=== PATIENT | female | born 1995 | race Caucasian/White ===

== ENCOUNTER 2021-02-06 18:53 | Inpatient (IN) | payer BC ==
[2021-02-06] MEDS ORDERED: Acetaminophen 325 MG Tab PO PRN (20:24)
[2021-02-06] MEDS ORDERED: Sodium Chloride 0.9% 10 ML Syringe FLUSH PRN (20:24)
[2021-02-06] MEDS ORDERED: Calcium Carbonate 500 MG Tab.Chew PO PRN (20:24)
[2021-02-06] MEDS ORDERED: Nalbuphine 10 MG/1 ML Vial IVPUSH PRN (20:24)
[2021-02-06] MEDS ORDERED: Ondansetron 4 MG/2 ML SDV IVPUSH PRN (20:24)
[2021-02-06] MEDS ORDERED: Lidocaine 1% 50 ML MDV INJECT ONE (20:24)
[2021-02-06] MEDS ORDERED: Oxytocin/Lactated Ringers 10 UNIT/1,000 ML BAG IV SCH ×2 (20:30)
--- NOTE | 2021-02-06 20:42 | PCM.LDHP ---
L&D History of Present Illness - General Date of Service: 02/06/21 Admit Problem/Dx: Patient Status Order with Admit Dx/Problem 02/06/21 20:24 Patient Status [ADT] Routine Admission Diagnosis/Problem Admission Diagnosis/Problem Term 02/06/21 20:35 Marcia is a 25-year-old 1 para [address] Tobar presently at 40-6/7 weeks gestational age with an CATHERINE of 01/31/2021 was admitted for induction of labor secondary to postdates. Source of Information: Patient History Limitations: Reports: No Limitations - History of Present Illness Introduction:: Marcia is a 25-year-old 1 para [address] Tobar presently at 40-6/7 weeks gestational age with an CATHERINE of 01/31/2021 was admitted for induction of labor secondary to postdates. The process of induction of labor, its risks, benefits, alternatives of care including allowing for natural onset of labor discussed in detail with patient. She appears understand and wishes to proceed. Upon admission patient is noted to be gary mildly. She does feel contractions. Her cervix exam done by nursing staff upon a dmission to labor and delivery is essentially unchanged from her evaluation in clinic where she is 1.5 cm, 40% effaced, -3 station. 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 Ultrasound done on 07/03/2020 given CATHERINE of 01/31/2021 which is her working CATHERINE. Patient seen on a regular basis. Weight gain was from 161 to 171 pounds. Her vital signs remained stable throughout the course. Baby's been active. Patient had menarche at normal age per her history. Cycles regular. No control at the time of conception. No STIs or abnormal Pap smears noted in the past. Laboratory testing in shows blood to be a positive with a negative antibody screen. First hemoglobin was 15.1 g/dL and platelets were 271,000. She is rubella negative. Syphilis IgG and IgM is nonreactive. Hepatitis B surface antigen was nonreactive. HIV negative. Chlamydia and gonorrhea tests were both negative. Second trimester showed hemoglobin of 11.9 g/dL. Platelets 189,000. 1 hour GTT was 135. Group B strep screen was negative. Allergies: None Medications: 1. vitamins 1 daily 2. Fluoxetine 1 tablet - 20 mg daily. 3 Zofran as needed for nausea Past medical history: Unremarkable Past surgical history: 1. Frenulectomy 2. Bladder surgery as a child to relieve the valve which was causing reflux 3. [place] teeth extraction Family history: Mother and father are alive and well. Maternal grandparents are alive and in generally good health. Her maternal grandfather has had a stroke. Her grandparents on her father's side are at old age. No anesthesia, bleeding, blood clotting problems noted in the family. Social history: Patient is . is Dave. 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 Dave her works as a teacher. She does not use any significance alcohol, drugs or tobacco. They live in the [facility]. Review of systems: In general patient has no complaints. The patient does reports having some contractions at this point Skin: Negative Lungs: No infectious symptoms or shortness of breath Cardiovascular: No chest pain or exercise intolerance Breasts: No lumps, changes in size, pain, dimpling, discharge or axillary or supraclavicular concerns. GI: Negative : Body habitus changes associated Musculoskeletal: Negative Neurological: Negative Physical exam: In general the patient is well-developed, well-nourished, pleasant female of stated age in no acute distress. Skin is warm dry without lesions. HEENT, neck and back within normal limits. Lungs are clear with good breath sounds in all lung montero. Cardiovascular exam shows regular and rhythm without murmurs. Abdomen is gravid with fundal height consistent with dates. Baby in vertex presentation by Nikos. Genital exam per nursing staff it is as outlined in the HPI. Extremities and neurological exam are grossly within normal limits. - Related Data Allergies/Adverse Reactions: Allergies Allergy/AdvReac Type Severity Reaction Status Date / Time No Known Allergies Allergy Verified 02/06/21 20:30 Home Medications: Home Meds Famotidine [Pepcid] 10 mg PO DAILY PRN 02/06/21 [History] No122/Iron/Folic Acid [ Multi Tablet] 1 each PO DAILY 02/06/21 [History] H&P Review of Systems - Review of Systems: Review Of Systems: See Below L&D Exam - Exam Exam: See Below - Vital Signs Weight: 76.929 kg - Problem List (1) 40 weeks gestation of SNOMED Code(s): 81003259 ICD Code: Z3A.40 - 40 WEEKS GESTATION OF Status: Acute Current Visit: Yes Problem List Initiated/Reviewed/Updated: Yes Orders Last 24hrs: Active Orders 24 hr Category Date Time Status Patient Status [ADT] Routine ADT 02/06/21 20:24 Active Activity as Tolerated [RC] PFP Care 02/06/21 20:24 Active Antiembolic Devices [RC] .Routine Care 02/06/21 20:26 Active Communication Order [RC] ASDIRECTED Care 02/06/21 20:24 Active Communication Order [RC] ASDIRECTED Care 02/06/21 20:24 Active Communication Order [RC] ASDIRECTED Care 02/06/21 20:24 Active Communication Order [RC] ASDIRECTED Care 02/06/21 20:24 Active Heart Tones [RC] ASDIRECTED Care 02/06/21 20:25 Active Monitoring [RC] INTERMITTENT Care 02/06/21 20:24 Active Non Stress Test [RC] PER UNIT ROUTINE Care 02/06/21 20:24 Active Notify Provider [RC] ASDIRECTED Care 02/06/21 20:24 Active Notify Provider [RC] PFP Care 02/06/21 20:24 Active Notify Provider [RC] PRN Care 02/06/21 20:24 Active Peripheral IV Care [RC] . DIRECTED Care 02/06/21 20:25 Active Pump Management, Intrathecal [RC] ASDIRECTED Care 02/06/21 20:25 Active Urinary Catheter Assessment [RC] ASDIRECTED Care 02/06/21 20:24 Active VTE/DVT Education [RC] PER UNIT ROUTINE Care 02/06/21 20:26 Active Vaginal Exam [RC] ASDIRECTED Care 02/06/21 20:24 Active Vital Signs [RC] PER UNIT ROUTINE Care 02/06/21 20:24 Active Regular Diet [DIET] Diet 02/06/21 Dinner Active BLOOD BANK HOLD SPECIMEN [BBK] Stat Lab 02/06/21 20:24 Ordered CBC WITH AUTO DIFF [HEME] Stat Lab 02/06/21 20:24 Ordered CORONAVIRUS COVID-19 ELENI [MOLEC] Stat Lab 02/06/21 20:27 Ordered HEP C VIRUS AB [REF] Stat Lab 02/06/21 20:24 Ordered RAPID PLASMA REAGIN,RPR [CHEM] Stat Lab 02/06/21 20:24 Ordered Acetaminophen [TylenoL] Med 02/06/21 20:24 Active 650 mg PO Q4H PRN Calcium Carbonate [Tums] Med 02/06/21 20:24 Active 1,000 mg PO Q2H PRN Lactated Ringers [Ringers, Lactated] 1,000 ml Med 02/06/21 20:30 Active IV ASDIRECTED Nalbuphine [Nubain] Med 02/06/21 20:24 Active 10 mg IVPUSH Q2H PRN Ondansetron [Zofran] Med 02/06/21 20:24 Active 4 mg IVPUSH Q4H PRN Oxytocin/Lactated Ringers [Pitocin in LR 10 Units/1,000 Med 02/06/21 20:30 Active ML] 10 unit in 1,000 ml IV .CONTINUOUS Oxytocin/Lactated Ringers [Pitocin in LR 10 Units/1,000 Med 02/06/21 20:30 Active ML] 10 unit in 1,000 ml IV TITRATE Sodium Chloride 0.9% [Saline Flush] Med 02/06/21 20:24 Active 10 ml FLUSH ASDIRECTED PRN DVT/VTE Prophylaxis Reflex [OM.PC] Routine Oth 02/06/21 20:25 Ordered Electronic Heart Tones Ext w TOCO [WOMSER] Oth 02/06/21 20:24 Ordered Routine Electronic Heart Tones Internal [WOMSER] Per Unit Oth 02/06/21 20:24 Ordered Routine Peripheral IV Insertion Adult [OM.PC] Routine Oth 02/06/21 20:24 Ordered Resuscitation Status Routine Resus Stat 02/06/21 20:24 Ordered Medication Orders Acetaminophen (Acetaminophen 325 Mg Tab) 650 mg PO Q4H PRN PRN Reason: Pain (Mild 1-3) and fever Calcium Carbonate/Glycine (Calcium Carbonate 500 Mg Tab.Chew) 1,000 mg PO Q2H PRN PRN Reason: Indigestion Lactated Ringer's (Ringers, Lactated) 1,000 mls @ 40 mls/hr IV ASDIRECTED REGGIE Oxytocin/Lactated Ringer's (Pitocin In Lr 10 Units/1,000 Ml) 10 unit in 1,000 mls @ 12 mls/hr IV TITRATE REGGIE; Protocol Oxytocin/Lactated Ringer's (Pitocin In Lr 10 Units/1,000 Ml) 10 unit in 1,000 mls @ 500 mls/hr IV .CONTINUOUS REGGIE Nalbuphine HCl (Nalbuphine 10 Mg/1 Ml Vial) 10 mg IVPUSH Q2H PRN PRN Reason: Pain Ondansetron HCl (Ondansetron 4 Mg/2 Ml Sdv) 4 mg IVPUSH Q4H PRN PRN Reason: Nausea/Vomiting Sodium Chloride (Sodium Chloride 0.9% 10 Ml Syringe) 10 ml FLUSH ASDIRECTED PRN PRN Reason: Keep Vein Open Assessment/Plan Comment:: 1. Marcia is a 25-year-old 1 para [address] Cao's presently at 40-6/7 weeks gestational age with an CATHERINE of 01/31/2021 was admitted for induction of labor secondary to postdates. 2. Group B strep negative 3. Rh+ 4. Patient plans to breast-feed 5. Rubella negative. 6. Patient wishes to initiate labor with natural pain control but is okay with epidural later if necessary Plan: 1. Pitocin induction/augmentation of labor-anticipate 2. Support breast-feeding decision 3. Epidural as needed 4. Admission labs to consist of CBC, COVID-19 testing, RPR per IN PROCESSING INSTRUCTOR protocol
[2021-02-06] MEDS: Lactated Ringers 1,000 ML IV SCH (21:26)
[2021-02-07] MEDS ORDERED: Bupivacaine 0.25% 10 ML SDV ONE ×2
[2021-02-07] MEDS ORDERED: Lidocaine 1.5% with EPINEPHrine 1:200,000 5 ML Amp ONE
[2021-02-07] MEDS ORDERED: ePHEDrine 50 MG/ML SDV IVPUSH PRN ×3 (03:31→21:34)
--- NOTE | 2021-02-07 03:34 | PCM.PREANE ---
Preanesthetic Assessment - Procedure Proposed Procedure: Epidural - Anesthesia/Transfusion/Family Hx Anesthesia History: Prior Anesthesia Without Reaction Family History of Anesthesia Reaction: No Transfusion History: No Prior Transfusion(s) Intubation History: Unknown - Review of Systems General: No Symptoms Pulmonary: No Symptoms Cardiovascular: No Symptoms Gastrointestinal: No Symptoms (GERD) Neurological: No Symptoms Other: Reports: None - Physical Assessment NPO Status Date: 02/06/21 NPO Status Time: 21:00 Vital Signs: Last Vital Signs Temp 37.2 C 02/06/21 19:45 Pulse 97 02/06/21 19:45 Resp 16 02/06/21 19:45 BP 142/77 H 02/06/21 19:45 Pulse Ox 98 02/06/21 19:45 Height: 1.63 m Weight: 76.929 kg ASA Class: 2 Mental Status: Alert & Oriented x3 Airway Class: Mallampati = 2 Dentition: Reports: Normal Dentition, Caries Thyro-Mental Finger Breadths: 3 Mouth Opening Finger Breadths: 3 ROM/Head Extension: Limited/Partial Lungs: Clear to Auscultation, Normal Respiratory Effort Cardiovascular: Regular Rate, Regular Rhythm, No Murmurs - Lab Values: Laboratory Last Values WBC 12.70 K/mm3 (3.98-10.04) H 02/06/21 20:39 RBC 4.38 M/mm3 (3.98-5.22) 02/06/21 20:39 Hgb 13.3 gm/dl (11.2-15.7) 02/06/21 20:39 Hct 39.5 % (34.1-44.9) 02/06/21 20:39 MCV 90.2 fl (79.4-94.8) 02/06/21 20:39 MCH 30.4 pg (25.6-32.2) 02/06/21 20:39 MCHC 33.7 g/dl (32.2-35.5) 02/06/21 20:39 RDW Std Deviation 43.4 fL (36.4-46.3) 02/06/21 20:39 Plt Count 146 K/mm3 (182-369) L D 02/06/21 20:39 MPV 11.0 fl (9.4-12.3) 02/06/21 20:39 Neut % (Auto) 70.5 % (34.0-71.1) 02/06/21 20:39 Lymph % (Auto) 21.3 % (19.3-51.7) 02/06/21 20:39 [place] % (Auto) 7.2 % (4.7-12.5) 02/06/21 20:39 Eos % (Auto) 0.6 (0.7-5.8) L 02/06/21 20:39 Baso % (Auto) 0.2 % (0.1-1.2) 02/06/21 20:39 Neut # (Auto) 8.95 K/mm3 (1.56-6.13) H 02/06/21 20:39 Lymph # (Auto) 2.70 K/mm3 (1.18-3.74) 02/06/21 20:39 [place] # (Auto) 0.92 K/mm3 (0.24-0.36) H 02/06/21 20:39 Eos # (Auto) 0.08 K/mm3 (0.04-0.36) 02/06/21 20:39 Baso # (Auto) 0.03 K/mm3 (0.01-0.08) 02/06/21 20:39 Manual Slide Review Abnormal smear 02/06/21 20:39 RPR Non-reactive (NONREACTIVE) 02/06/21 20:39 SARS-CoV-2 RNA (ELENI) Negative (NEGATIVE) 02/06/21 20:55 Above labs reviewed and noted and within acceptable ranges to proceed with epidural. 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: Psychiatric History: Reports: Anxiety, Depression - Past Surgical History HEENT Surgical History: Reports: Oral Surgery Other HEENT Surgeries/Procedures: [place] teeth Female Surgical History: Reports: Other (See Below) Other Female Surgeries/Procedures: Bladder surgery as a child - SUBSTANCE USE Tobacco Use Status *Q: Never Tobacco User Tobacco Use Within Last Twelve Months: No Recreational Drug Use History: No - HOME MEDS Home Medications: Home Meds Famotidine [Pepcid] 10 mg PO DAILY PRN 02/06/21 [History] No122/Iron/Folic Acid [ Multi Tablet] 1 each PO DAILY 02/06/21 [History] - CURRENT (IN HOUSE) MEDS Current Meds: Current Medications Acetaminophen (Acetaminophen 325 Mg Tab) 650 mg PO Q4H PRN PRN Reason: Pain (Mild 1-3) and fever Calcium Carbonate/Glycine (Calcium Carbonate 500 Mg Tab.Chew) 1,000 mg PO Q2H PRN PRN Reason: Indigestion Ephedrine Sulfate (Ephedrine 50 Mg/Ml Sdv) 5 mg IVPUSH ASDIRECTED PRN PRN Reason: Hypotension Fentanyl (Fentanyl 100 Mcg/2 Ml Sdv) 100 mcg EPIDUR Q3H PRN PRN Reason: Pain Fentanyl/Bupivacaine HCl (Bupivacaine/Fentanyl/Ns 100 Ml Bag) 100 ml EPIDUR ASDIRECTED REGGIE Lactated Ringer's (Ringers, Lactated) 1,000 mls @ 40 mls/hr IV ASDIRECTED REGGIE Last Admin: 02/06/21 21:26 Dose: 40 mls/hr Documented by: Oxytocin/Lactated Ringer's (Pitocin In Lr 10 Units/1,000 Ml) 10 unit in 1,000 mls @ 12 mls/hr IV TITRATE REGGIE; Protocol Last Titration: 02/06/21 23:33 Dose: 12 munits/min, 72 mls/hr Documented by: Oxytocin/Lactated Ringer's (Pitocin In Lr 10 Units/1,000 Ml) 10 unit in 1,000 mls @ 500 mls/hr IV .CONTINUOUS REGGIE Miscellaneous Medication (Phenylephrine Hcl In 0.9% Nacl 1 Mg/10 Ml Syringe) 0.1 mg IVPUSH Q10M PRN PRN Reason: Hypotension Nalbuphine HCl (Nalbuphine 10 Mg/1 Ml Vial) 10 mg IVPUSH Q2H PRN PRN Reason: Pain Ondansetron HCl (Ondansetron 4 Mg/2 Ml Sdv) 4 mg IVPUSH Q4H PRN PRN Reason: Nausea/Vomiting Sodium Chloride (Sodium Chloride 0.9% 10 Ml Syringe) 10 ml FLUSH ASDIRECTED PRN PRN Reason: Keep Vein Open Discontinued Medications Lidocaine HCl (Lidocaine 1% 50 Ml Mdv) 20 ml INJECT ONETIME ONE Stop: 02/06/21 20:25
[2021-02-07] MEDS: fentaNYL 100 MCG/2 ML SDV EPIDUR PRN ×2 (03:49→14:30)
[2021-02-07] MEDS: Bupivacaine/fentaNYL/NS 100 ML Bag EPIDUR SCH ×2 (03:50→12:25)
[2021-02-07] MEDS: Lactated Ringers 1,000 ML IV SCH ×3 (04:00→18:06)
--- NOTE | 2021-02-07 07:34 | PCM.PNLD ---
Labor Progress Note - VS & Meds Vital Signs: Last Vital Signs Temp 37.2 C 02/06/21 19:45 Pulse 97 02/06/21 19:45 Resp 16 02/06/21 19:45 BP 142/77 H 02/06/21 19:45 Pulse Ox 98 02/06/21 19:45 Active Medications: Current Medications Acetaminophen (Acetaminophen 325 Mg Tab) 650 mg PO Q4H PRN PRN Reason: Pain (Mild 1-3) and fever Calcium Carbonate/Glycine (Calcium Carbonate 500 Mg Tab.Chew) 1,000 mg PO Q2H PRN PRN Reason: Indigestion Ephedrine Sulfate (Ephedrine 50 Mg/Ml Sdv) 5 mg IVPUSH ASDIRECTED PRN PRN Reason: Hypotension Fentanyl (Fentanyl 100 Mcg/2 Ml Sdv) 100 mcg EPIDUR Q3H PRN PRN Reason: Pain Last Admin: 02/07/21 03:49 Dose: 100 mcg Documented by: Fentanyl/Bupivacaine HCl (Bupivacaine/Fentanyl/Ns 100 Ml Bag) 100 ml EPIDUR ASDIRECTED REGGIE Last Admin: 02/07/21 03:50 Dose: 100 ml Documented by: Lactated Ringer's (Ringers, Lactated) 1,000 mls @ 40 mls/hr IV ASDIRECTED REGGIE Last Admin: 02/07/21 04:46 Dose: 40 mls/hr Documented by: Oxytocin/Lactated Ringer's (Pitocin In Lr 10 Units/1,000 Ml) 10 unit in 1,000 mls @ 12 mls/hr IV TITRATE REGGIE; Protocol Last Titration: 02/07/21 07:10 Dose: 16 munits/min, 96 mls/hr Documented by: Oxytocin/Lactated Ringer's (Pitocin In Lr 10 Units/1,000 Ml) 10 unit in 1,000 mls @ 500 mls/hr IV .CONTINUOUS REGGIE Miscellaneous Medication (Phenylephrine Hcl In 0.9% Nacl 1 Mg/10 Ml Syringe) 0.1 mg IVPUSH Q10M PRN PRN Reason: Hypotension Nalbuphine HCl (Nalbuphine 10 Mg/1 Ml Vial) 10 mg IVPUSH Q2H PRN PRN Reason: Pain Ondansetron HCl (Ondansetron 4 Mg/2 Ml Sdv) 4 mg IVPUSH Q4H PRN PRN Reason: Nausea/Vomiting Sodium Chloride (Sodium Chloride 0.9% 10 Ml Syringe) 10 ml FLUSH ASDIRECTED PRN PRN Reason: Keep Vein Open Discontinued Medications Lidocaine HCl (Lidocaine 1% 50 Ml Mdv) 20 ml INJECT ONETIME ONE Stop: 02/06/21 20:25 - Uterine Contractions Uterine Monitoring Mode: External [place] Contraction Intensity: Moderate to Strong Uterine Resting Tone: Soft - Monitoring Heart Rate (FHR) Baseline: 140 Heart Rate (FHR) Variability: Moderate (6-25 bmp) Accelerations: Present, 15x15 Strip Review: Category I - Vaginal Exam Dilation (cm): 2 Effacement (Percent): 80 Station: -4 Cervical Position: Midposition - Labor Progress (Free Text) Labor Progress: SROM clear fluid. Reassuring monitoring. Continue to increase pitocin. Monitor closely for cervical change - station significantly high and at my check not well applied to cervix. May simply not be active labor yet, but watch closely for minimal progress related to inadequate size of pelvis. Consider IUPC at noon.
[2021-02-07] MEDS ORDERED: Oxytocin/Lactated Ringers 20 UNIT/1,000 ML BAG IV SCH (10:30)
[2021-02-07] MEDS ORDERED: Citric Acid/Sodium Citrate Solution 30 ML Cup ONE (19:12)
[2021-02-07] MEDS ORDERED: Metoclopramide 10 MG/2 ML SDV ONE (19:12)
[2021-02-07] MEDS ORDERED: Bupivacaine 0.5% 30 ML SDV ONE (19:22)
[2021-02-07] MEDS ORDERED: Lactated Ringers 2,000 ML ONE (19:24)
[2021-02-07] MEDS ORDERED: Morphine PF 10 MG/10 ML SDV ONE (19:24)
[2021-02-07] MEDS ORDERED: Oxytocin 10 Units/1 ML SDV ONE ×2 (19:24→20:06)
[2021-02-07] MEDS ORDERED: Ketorolac 30 MG/ML SDV ONE (19:24)
[2021-02-07] MEDS ORDERED: ceFAZolin 1 GM Vial ONE (19:24)
[2021-02-07] MEDS ORDERED: fentaNYL 100 MCG/2 ML SDV ONE (19:24)
[2021-02-07] MEDS ORDERED: Lidocaine 2% with EPINEPHrine 1:200,000 20 ML SDV ONE (19:24)
[2021-02-07] MEDS ORDERED: Ondansetron 4 MG/2 ML SDV ONE (19:24)
--- NOTE | 2021-02-07 19:24 | PCM.PNLD ---
Labor Progress Note - VS & Meds Vital Signs: Last Vital Signs Temp 37.2 C 02/06/21 19:45 Pulse 97 02/06/21 19:45 Resp 16 02/06/21 19:45 BP 142/77 H 02/06/21 19:45 Pulse Ox 98 02/06/21 19:45 Active Medications: Current Medications Acetaminophen (Acetaminophen 325 Mg Tab) 650 mg PO Q4H PRN PRN Reason: Pain (Mild 1-3) and fever Calcium Carbonate/Glycine (Calcium Carbonate 500 Mg Tab.Chew) 1,000 mg PO Q2H PRN PRN Reason: Indigestion Ephedrine Sulfate (Ephedrine 50 Mg/Ml Sdv) 5 mg IVPUSH ASDIRECTED PRN PRN Reason: Hypotension Fentanyl (Fentanyl 100 Mcg/2 Ml Sdv) 100 mcg EPIDUR Q3H PRN PRN Reason: Pain Last Admin: 02/07/21 14:30 Dose: 100 mcg Documented by: Fentanyl/Bupivacaine HCl (Bupivacaine/Fentanyl/Ns 100 Ml Bag) 100 ml EPIDUR ASDIRECTED REGGIE Last Admin: 02/07/21 12:25 Dose: 100 ml Documented by: Lactated Ringer's (Ringers, Lactated) 1,000 mls @ 40 mls/hr IV ASDIRECTED REGGIE Last Admin: 02/07/21 18:06 Dose: 40 mls/hr Documented by: Oxytocin/Lactated Ringer's (Pitocin In Lr 10 Units/1,000 Ml) 10 unit in 1,000 mls @ 12 mls/hr IV TITRATE REGGIE; Protocol Last Titration: 02/07/21 11:07 Dose: 21 munits/min, 126 mls/hr Documented by: Oxytocin/Lactated Ringer's (Pitocin In Lr 10 Units/1,000 Ml) 10 unit in 1,000 mls @ 500 mls/hr IV .CONTINUOUS REGGIE Oxytocin/Lactated Ringer's (Pitocin In Lr 20 Units/1,000 Ml) 20 unit in 1,000 mls @ 60 mls/hr IV TITRATE REGGIE; Protocol Last Admin: 02/07/21 11:50 Dose: 60 mls/hr Documented by: Miscellaneous Medication (Phenylephrine Hcl In 0.9% Nacl 1 Mg/10 Ml Syringe) 0.1 mg IVPUSH Q10M PRN PRN Reason: Hypotension Nalbuphine HCl (Nalbuphine 10 Mg/1 Ml Vial) 10 mg IVPUSH Q2H PRN PRN Reason: Pain Ondansetron HCl (Ondansetron 4 Mg/2 Ml Sdv) 4 mg IVPUSH Q4H PRN PRN Reason: Nausea/Vomiting Last Admin: 02/07/21 16:25 Dose: 4 mg Documented by: Sodium Chloride (Sodium Chloride 0.9% 10 Ml Syringe) 10 ml FLUSH ASDIRECTED PRN PRN Reason: Keep Vein Open Discontinued Medications Citric Acid/Sodium Citrate (Citric Acid/Sodium Citrate Solution 30 Ml Cup) Confirm Administered Dose 30 ml .ROUTE .STK-MED ONE Stop: 02/07/21 19:13 Lidocaine HCl (Lidocaine 1% 50 Ml Mdv) 20 ml INJECT ONETIME ONE Stop: 02/06/21 20:25 Metoclopramide HCl (Metoclopramide 10 Mg/2 Ml Sdv) Confirm Administered Dose 10 mg .ROUTE .STK-MED ONE Stop: 02/07/21 19:13 - Uterine Contractions Uterine Monitoring Mode: External [place] Contraction Intensity: Moderate to Strong Uterine Resting Tone: Soft - Monitoring Heart Rate (FHR) Baseline: 140 Heart Rate (FHR) Variability: Moderate (6-25 bmp) Accelerations: Present, 15x15 Strip Review: Category I - Vaginal Exam Dilation (cm): 6.5 Effacement (Percent): 80 Station: -2 Cervical Position: Midposition - Labor Progress (Free Text) Labor Progress: Slow progress to 6.5. Significant swelling. Will continue to monitor and if no change at 7 or so probable
--- NOTE | 2021-02-07 19:26 | PCM.PNLD ---
Labor Progress Note - VS & Meds Vital Signs: Last Vital Signs Temp 37.2 C 02/06/21 19:45 Pulse 97 02/06/21 19:45 Resp 16 02/06/21 19:45 BP 142/77 H 02/06/21 19:45 Pulse Ox 98 02/06/21 19:45 Active Medications: Current Medications Acetaminophen (Acetaminophen 325 Mg Tab) 650 mg PO Q4H PRN PRN Reason: Pain (Mild 1-3) and fever Calcium Carbonate/Glycine (Calcium Carbonate 500 Mg Tab.Chew) 1,000 mg PO Q2H PRN PRN Reason: Indigestion Ephedrine Sulfate (Ephedrine 50 Mg/Ml Sdv) 5 mg IVPUSH ASDIRECTED PRN PRN Reason: Hypotension Fentanyl (Fentanyl 100 Mcg/2 Ml Sdv) 100 mcg EPIDUR Q3H PRN PRN Reason: Pain Last Admin: 02/07/21 14:30 Dose: 100 mcg Documented by: Fentanyl/Bupivacaine HCl (Bupivacaine/Fentanyl/Ns 100 Ml Bag) 100 ml EPIDUR ASDIRECTED REGGIE Last Admin: 02/07/21 12:25 Dose: 100 ml Documented by: Lactated Ringer's (Ringers, Lactated) 1,000 mls @ 40 mls/hr IV ASDIRECTED REGGIE Last Admin: 02/07/21 18:06 Dose: 40 mls/hr Documented by: Oxytocin/Lactated Ringer's (Pitocin In Lr 10 Units/1,000 Ml) 10 unit in 1,000 mls @ 12 mls/hr IV TITRATE REGGIE; Protocol Last Titration: 02/07/21 11:07 Dose: 21 munits/min, 126 mls/hr Documented by: Oxytocin/Lactated Ringer's (Pitocin In Lr 10 Units/1,000 Ml) 10 unit in 1,000 mls @ 500 mls/hr IV .CONTINUOUS REGGIE Oxytocin/Lactated Ringer's (Pitocin In Lr 20 Units/1,000 Ml) 20 unit in 1,000 mls @ 60 mls/hr IV TITRATE REGGIE; Protocol Last Admin: 02/07/21 11:50 Dose: 60 mls/hr Documented by: Miscellaneous Medication (Phenylephrine Hcl In 0.9% Nacl 1 Mg/10 Ml Syringe) 0.1 mg IVPUSH Q10M PRN PRN Reason: Hypotension Nalbuphine HCl (Nalbuphine 10 Mg/1 Ml Vial) 10 mg IVPUSH Q2H PRN PRN Reason: Pain Ondansetron HCl (Ondansetron 4 Mg/2 Ml Sdv) 4 mg IVPUSH Q4H PRN PRN Reason: Nausea/Vomiting Last Admin: 02/07/21 16:25 Dose: 4 mg Documented by: Sodium Chloride (Sodium Chloride 0.9% 10 Ml Syringe) 10 ml FLUSH ASDIRECTED PRN PRN Reason: Keep Vein Open Discontinued Medications Citric Acid/Sodium Citrate (Citric Acid/Sodium Citrate Solution 30 Ml Cup) Confirm Administered Dose 30 ml .ROUTE .STK-MED ONE Stop: 02/07/21 19:13 Last Admin: 02/07/21 19:20 Dose: 30 ml Documented by: Lidocaine HCl (Lidocaine 1% 50 Ml Mdv) 20 ml INJECT ONETIME ONE Stop: 02/06/21 20:25 Metoclopramide HCl (Metoclopramide 10 Mg/2 Ml Sdv) Confirm Administered Dose 10 mg .ROUTE .LTG [employer] ONE Stop: 02/07/21 19:13 Last Admin: 02/07/21 19:16 Dose: 10 mg Documented by: - Uterine Contractions Uterine Monitoring Mode: External [place] Contraction Intensity: Moderate to Strong Uterine Resting Tone: Soft - Monitoring Heart Rate (FHR) Baseline: 140 Heart Rate (FHR) Variability: Moderate (6-25 bmp) Accelerations: Present, 15x15 Strip Review: Category I - Vaginal Exam Dilation (cm): 6.5 Effacement (Percent): 80 Station: -2 Cervical Position: Midposition - Labor Progress (Free Text) Labor Progress: No significant progress since before 4 pm. Discussed risks, benefits and alternatives and wishes to proceed with primary section
[2021-02-07] MEDS ORDERED: Sodium Chloride 0.9% 10 ML Syringe FLUSH PRN (19:29)
[2021-02-07] MEDS ORDERED: Citric Acid/Sodium Citrate Solution 30 ML Cup PO ONE (19:29)
[2021-02-07] MEDS ORDERED: Lactated Ringers 1,000 ML IV SCH (19:30)
--- NOTE | 2021-02-07 19:31 | PCM.OPNOTE ---
- General Post-Op/Procedure Note Date of Surgery/Procedure: 02/07/21 Operative Procedure(s): primary section Pre Op Diagnosis: failure to progress Post-Op Diagnosis: Same, macrosomina Primary Surgeon: Marycarmen España Cabinetmaker Maintenance: Tatiana Kellogg Fluid Replacement, Intraop: 1,000 Output, Urine Amount: 275 EBL in mLs: 1,800 Complications: None Condition: Good Free Text/Narrative:: Intake & Output 02/07/21 02/07/21 02/07/21 06:59 14:59 22:59 Intake Total 2000 1000 Output Total 1350 Balance 200@ -350 The patient was taken to the operating room where epidural anesthesia was dosed to surgical levels without difficulty. The patient was prepped and draped in the usual sterile fashion in the dorsal supine position with a leftward tilt. A Pfannenstiel skin incision was made with the scalpel and carried through to the underlying layer of fascia. The fascia was incised in the midline and extended laterally using Hurtado scissors. Juliane clamps were used to elevate the superior aspect of the fascial incision, which was elevated, and the underlying rectus muscles were dissected off bluntly and using Hurtado scissors. Attention was then turned to the inferior aspect of the fascial incision, which in similar fashion was grasped with Juliane clamps, elevated, and the underlying rectus muscles were dissected off bluntly and using the hurtado. The rectus muscles were dissected in the midline. The peritoneum was entered bluntly; this incision was extended superiorly and inferiorly with good visualization of the bladder. There was scarring of bladder and appearance of redundant The bladder blade was inserted. The vesicouterine peritoneum was identified and entered sharply using Metzenbaum scissors. This incision was extended laterally and the bladder flap was created digitally. The bladder blade was reinserted. The lower uterine segment was incised in a transverse fashion using the scalpel and with digital traction. Meconium stained fluid was noted. The was subsequently delivered by flexing the head to the incision, kiwi vacuum placed with one pop off. Body and shoulders followed with some difficulty. The cord was clamped and cut. The was subsequently handed to the awaiting soldering machine tender whose presence had been requested. The placenta was delivered spontaneously intact with a three- vessel cord noted. The uterus was exteriorized and cleared of all clots and debris. The uterine incision was repaired in 2 layers using 0 monocryl. Additional layer at left aspect utilized. Bladder inspected, patrick bulb palpated, intact. Floseal placed in bladder flap area where there was some abrasion/oozing. Hemostasis was visualized. Hemostasis was visualized bilaterally. The uterus was returned to the abdomen. The uterine incision was reexamined and it was noted to be hemostatic. The pelvis was copiously irrigated. The fascia was closed with 1 PDS suture, and the skin was closed with 3-0 monocryl. Sponge, lap, and instrument counts were correct x2. The patient was stable at the completion of the procedure and was subsequently transferred to the recovery room in stable condition. Uterus experssed of additional 400.
[2021-02-07] MEDS ORDERED: Metoclopramide 10 MG/2 ML SDV IVPUSH ONE (19:40)
[2021-02-07] MEDS ORDERED: Azithromycin 500 MG in Sodium Chloride 0.9% 250 ML IV ONE (19:40)
[2021-02-07] MEDS ORDERED: ceFAZolin 2 GM in Premix Bag 1 BAG IV ONE (19:45)
[2021-02-07] MEDS ORDERED: diphenhydrAMINE 50 MG/ML SDV IVPUSH PRN ×2 (19:50→21:34)
[2021-02-07] MEDS ORDERED: HYDROmorphone 0.5 MG/0.5 ML Syringe IVPUSH PRN (19:50)
[2021-02-07] MEDS ORDERED: Ondansetron 4 MG/2 ML SDV IVPUSH PRN (19:50)
[2021-02-07] MEDS ORDERED: fentaNYL 100 MCG/2 ML SDV IVPUSH PRN (19:50)
[2021-02-07] MEDS ORDERED: Meperidine 50 MG/ML Vial ONE (20:07)
--- NOTE | 2021-02-07 20:56 | PCM.POSTAN ---
POST ANESTHESIA ASSESSMENT - MENTAL STATUS Mental Status: Alert - VITAL SIGNS Vital Signs: Last Vital Signs Temp 98.3 02/06/212044 Pulse 129 02/06/212044 Resp 17 02/06/212044 BP 100/51 02/06/212044 Pulse Ox 97% 02/06/212044 - RESPIRATORY Respiratory Status: Respiratory Rate WNL, Airway Patent, O2 Saturation Stable, Supplemental Oxygen - CARDIOVASCULAR CV Status: Pulse Rate WNL, Blood Pressure Stable - GASTROINTESTINAL GI Status: No Symptoms - POST OP HYDRATION Hydration Status: Adequate & Stable
[2021-02-07] MEDS ORDERED: Ketorolac 30 MG/ML SDV IVPUSH SCH (21:34)
[2021-02-07] MEDS ORDERED: Dextrose 5%-Lactated Ringers 1,000 ML IV SCH (21:34)
[2021-02-07] MEDS ORDERED: Witch Hazel Medicated Pads 40/Jar TOP PRN (21:34)
[2021-02-07] MEDS ORDERED: Naloxone 0.4 MG/ML SDV IVPUSH PRN (21:34)
[2021-02-07] MEDS ORDERED: Acetaminophen/oxyCODONE 325-5 MG Tab PO PRN (21:34)
[2021-02-08] MEDS: Ketorolac 30 MG/ML SDV IVPUSH SCH ×3 (02:31→15:46)
--- NOTE | 2021-02-08 07:34 | PCM48HPAN ---
Post Anesthesia Note - EVALUATION WITHIN 48HRS OF ANESTHETIC Vital Signs in Normal Range: Yes Patient Participated in Evaluation: Yes Respiratory Function Stable: Yes Airway Patent: Yes Cardiovascular Function Stable: Yes Hydration Status Stable: Yes Pain Control Satisfactory: Yes Nausea and Vomiting Control Satisfactory: Yes Mental Status Recovered: Yes Vital Signs: Last Vital Signs Temp 37.5 C 02/08/21 04:38 Pulse 91 02/08/21 04:38 Resp 14 02/08/21 07:00 BP 114/60 02/08/21 04:38 Pulse Ox 98 02/08/21 04:38
--- NOTE | 2021-02-08 08:36 | PCM.PNPP ---
- General Info Date of Service: 02/08/21 Functional Status: Reports: Pain Controlled - Review of Systems General: Reports: No Symptoms HEENT: Reports: No Symptoms Pulmonary: Reports: No Symptoms Cardiovascular: Reports: No Symptoms Gastrointestinal: Reports: No Symptoms Genitourinary: Reports: No Symptoms Musculoskeletal: Reports: No Symptoms Skin: Reports: No Symptoms Neurological: Reports: No Symptoms Psychiatric: Reports: No Symptoms - General Info Date of Service: 02/08/21 - Patient Data Vital Signs - Most Recent: Last Vital Signs Temp 37.5 C 02/08/21 04:38 Pulse 91 02/08/21 04:38 Resp 14 02/08/21 07:00 BP 114/60 02/08/21 04:38 Pulse Ox 98 02/08/21 04:38 Weight - Most Recent: 76.929 kg I&O - Last 24 Hours: Intake & Output 02/07/21 02/08/21 02/08/21 22:59 06:59 14:59 Intake Total 2500 3750 Output Total 35( 48# Balance 214B 327= Lab Results - Last 24 Hours: Laboratory Results - last 24 hr 02/07/21 02/08/21 Range/Units 23:06 05:17 WBC 31.69 H 26.72 H (3.98-10.04) K/mm3 RBC 3.71 L 3.19 L (3.98-5.22) M/mm3 Hgb 11.1 L D 9.7 L (11.2-15.7) gm/dl Hct 33.7 L 29.1 L (34.1-44.9) % MCV 90.8 91.2 (79.4-94.8) fl MCH 29.9 30.4 (25.6-32.2) pg MCHC 32.9 33.3 (32.2-35.5) g/dl RDW Std Deviation 43.1 43.7 (36.4-46.3) fL Plt Count 168 L 158 L (182-369) K/mm3 MPV 10.7 10.5 (9.4-12.3) fl Neut % (Auto) 89.5 H 84.6 H (34.0-71.1) % Lymph % (Auto) 3.8 L 7.5 L (19.3-51.7) % [place] % (Auto) 6.2 7.4 (4.7-12.5) % Eos % (Auto) 0 L 0 L (0.7-5.8) Baso % (Auto) 0.1 0.1 (0.1-1.2) % Neut # (Auto) 28.35 H 22.62 H (1.56-6.13) K/mm3 Lymph # (Auto) 1.20 2.00 (1.18-3.74) K/mm3 [place] # (Auto) 1.98 H 1.97 H (0.24-0.36) K/mm3 Eos # (Auto) 0.00 L 0.00 L (0.04-0.36) K/mm3 Baso # (Auto) 0.03 0.02 (0.01-0.08) K/mm3 Manual Slide Review Abnormal smear Abnormal smear Med Orders - Current: Current Medications Diphenhydramine HCl (Diphenhydramine 50 Mg/Ml Sdv) 25 mg IVPUSH Q6H PRN PRN Reason: Itching or Nausea Ephedrine Sulfate (Ephedrine 50 Mg/Ml Sdv) 5 mg IVPUSH SEECOMMENT PRN PRN Reason: Other Ketorolac Tromethamine (Ketorolac 30 Mg/Ml Sdv) 30 mg IVPUSH Q6H REGGIE Stop: 02/08/21 15:01 Last Admin: 02/08/21 02:31 Dose: 30 mg Documented by: Naloxone HCl (Naloxone 0.4 Mg/Ml Sdv) 0.1 mg IVPUSH SEECOMMENT PRN PRN Reason: Respiratory Depression Oxycodone/Acetaminophen (Acetaminophen/Oxycodone 325-5 Mg Tab) 1 tab PO Q4H PRN PRN Reason: Pain (moderate 4-6) Oxycodone/Acetaminophen (Acetaminophen/Oxycodone 325-5 Mg Tab) 2 tab PO Q4H PRN PRN Reason: Pain (severe 7-10) Witch Elida (Witch Elida Medicated Pads 40/Jar) 1 pad TOP ASDIRECTED PRN PRN Reason: Abdominal Pain Discontinued Medications Acetaminophen (Acetaminophen 325 Mg Tab) 650 mg PO Q4H PRN PRN Reason: Pain (Mild 1-3) and fever Bupivacaine HCl (Bupivacaine 0.5% 30 Ml Sdv) Confirm Administered Dose 30 ml .ROUTE .STK-MED ONE Stop: 02/07/21 19:23 Calcium Carbonate/Glycine (Calcium Carbonate 500 Mg Tab.Chew) 1,000 mg PO Q2H PRN PRN Reason: Indigestion Cefazolin Sodium (Cefazolin 1 Gm Vial) Confirm Administered Dose [address] .[facility] ONE Stop: 02/07/21 19:25 Citric Acid/Sodium Citrate (Citric Acid/Sodium Citrate Solution 30 Ml Cup) Confirm Administered Dose 30 ml .ROUTE .[facility] ONE Stop: 02/07/21 19:13 Last Admin: 02/07/21 19:20 Dose: 30 ml Documented by: Citric Acid/Sodium Citrate (Citric Acid/Sodium Citrate Solution 30 Ml Cup) 30 ml PO ONETIME ONE Stop: 02/07/21 19:30 Last Admin: 02/07/21 23:42 Dose: Not Given Documented by: Diphenhydramine HCl (Diphenhydramine 50 Mg/Ml Sdv) 25 mg IVPUSH Q6H PRN PRN Reason: pruritis Ephedrine Sulfate (Ephedrine 50 Mg/Ml Sdv) 5 mg IVPUSH ASDIRECTED PRN PRN Reason: Hypotension Ephedrine Sulfate (Ephedrine 50 Mg/Ml Sdv) 5 mg IVPUSH ASDIRECTED PRN PRN Reason: Hypotension Fentanyl (Fentanyl 100 Mcg/2 Ml Sdv) 100 mcg EPIDUR Q3H PRN PRN Reason: Pain Last Admin: 02/07/21 14:30 Dose: 100 mcg Documented by: Fentanyl (Fentanyl 100 Mcg/2 Ml Sdv) Confirm Administered Dose 100 mcg .ROUTE .[facility] ONE Stop: 02/07/21 19:25 Fentanyl (Fentanyl 100 Mcg/2 Ml Sdv) 50 mcg IVPUSH Q20M PRN PRN Reason: Pain Fentanyl/Bupivacaine HCl (Bupivacaine/Fentanyl/Ns 100 Ml Bag) 100 ml EPIDUR ASDIRECTED [facility] Last Admin: 02/07/21 12:25 Dose: 100 ml Documented by: Hydromorphone HCl (Hydromorphone 0.5 Mg/0.5 Ml Syringe) 0.5 mg IVPUSH Q10M PRN PRN Reason: Pain (severe 7-10) Lactated Ringer's (Ringers, Lactated) 1,000 mls @ 40 mls/hr IV ASDIRECTED [facility] Last Admin: 02/07/21 18:06 Dose: 40 mls/hr Documented by: Oxytocin/Lactated Ringer's (Pitocin In Lr 10 Units/1,000 Ml) 10 unit in 1,000 mls @ 12 mls/hr IV TITRATE REGGIE; Protocol Last Titration: 02/07/21 19:05 Dose: Infused Documented by: Oxytocin/Lactated Ringer's (Pitocin In Lr 10 Units/1,000 Ml) 10 unit in 1,000 mls @ 500 mls/hr IV .CONTINUOUS REGGIE Oxytocin/Lactated Ringer's (Pitocin In Lr 20 Units/1,000 Ml) 20 unit in 1,000 mls @ 60 mls/hr IV TITRATE REGGIE; Protocol Last Admin: 02/07/21 11:50 Dose: 60 mls/hr Documented by: Lactated Ringer's (Ringers, Lactated) Confirm Administered Dose 2,000 mls @ as directed .ROUTE .STK-MED ONE Stop: 02/07/21 19:25 Lactated Ringer's (Ringers, Lactated) 1,000 mls @ 125 mls/hr IV ASDIRECTED REGGIE Cefazolin Sodium/Dextrose 2 gm (/ Premix) 50 mls @ 100 mls/hr IV ONETIME ONE Stop: 02/07/21 20:14 Last Admin: 02/07/21 23:42 Dose: Not Given Documented by: Azithromycin 500 mg/ Sodium (Chloride) 250 mls @ 250 mls/hr IV ONETIME ONE Stop: 02/07/21 20:39 Last Admin: 02/07/21 19:22 Dose: 250 mls/hr Documented by: Dextrose/Lactated Ringer's (Dextrose 5%-Lactated Ringers) 1,000 mls @ 125 mls/hr IV ASDIRECTED REGGIE Stop: 02/08/21 05:33 Last Admin: 02/08/21 00:19 Dose: 125 mls/hr Documented by: Ketorolac Tromethamine (Ketorolac 30 Mg/Ml Sdv) Confirm Administered Dose 30 mg .ROUTE .STK-MED ONE Stop: 02/07/21 19:25 Ketorolac Tromethamine (Ketorolac 30 Mg/Ml Sdv) 30 mg IVPUSH Q6H REGGIE Stop: 02/08/21 09:35 Last Admin: 02/08/21 02:40 Dose: Not Given Documented by: Lidocaine HCl (Lidocaine 1% 50 Ml Mdv) 20 ml INJECT ONETIME ONE Stop: 02/06/21 20:25 Last Admin: 02/07/21 23:42 Dose: Not Given Documented by: Lidocaine/Epinephrine (Lidocaine 2% With Epinephrine 1:200,000 20 Ml Sdv) Confirm Administered Dose 20 ml .ROUTE .[facility] ONE Stop: 02/07/21 19:25 Meperidine HCl (Meperidine 50 Mg/Ml Vial) Confirm Administered Dose 50 mg .ROUTE .[employer]-[facility] ONE Stop: 02/07/21 20:08 Metoclopramide HCl (Metoclopramide 10 Mg/2 Ml Sdv) Confirm Administered Dose 10 mg .ROUTE .[employer]-[facility] ONE Stop: 02/07/21 19:13 Last Admin: 02/07/21 19:16 Dose: 10 mg Documented by: Metoclopramide HCl (Metoclopramide 10 Mg/2 Ml Sdv) 10 mg IVPUSH ONETIME ONE Stop: 02/07/21 19:41 Last Admin: 02/07/21 23:42 Dose: Not Given Documented by: Miscellaneous Medication (Phenylephrine Hcl In 0.9% Nacl 1 Mg/10 Ml Syringe) 0.1 mg IVPUSH Q10M PRN PRN Reason: Hypotension Miscellaneous Medication (Phenylephrine Hcl In 0.9% Nacl 1 Mg/10 Ml Syringe) Confirm Administered Dose 1 mg .ROUTE .[employer]-[facility] ONE Stop: 02/07/21 19:25 Miscellaneous Medication (Phenylephrine Hcl In 0.9% Nacl 1 Mg/10 Ml Syringe) 0.1 mg IVPUSH Q10M PRN PRN Reason: Hypotension Miscellaneous Medication (Phenylephrine Hcl In 0.9% Nacl 1 Mg/10 Ml Syringe) Confirm Administered Dose 1 mg .ROUTE .[employer]-[facility] ONE Stop: 02/07/21 20:35 Morphine Sulfate (Morphine Pf 10 Mg/10 Ml Sdv) Confirm Administered Dose 10 mg .ROUTE .[employer]-[facility] ONE Stop: 02/07/21 19:25 Nalbuphine HCl (Nalbuphine 10 Mg/1 Ml Vial) 10 mg IVPUSH Q2H PRN PRN Reason: Pain Ondansetron HCl (Ondansetron 4 Mg/2 Ml Sdv) 4 mg IVPUSH Q4H PRN PRN Reason: Nausea/Vomiting Last Admin: 02/07/21 16:25 Dose: 4 mg Documented by: Ondansetron HCl (Ondansetron 4 Mg/2 Ml Sdv) Confirm Administered Dose 4 mg .ROUTE .STK-MED ONE Stop: 02/07/21 19:25 Ondansetron HCl (Ondansetron 4 Mg/2 Ml Sdv) 4 mg IVPUSH ONETIME PRN PRN Reason: Nausea/Vomiting Oxytocin (Oxytocin 10 Units/1 Ml Sdv) Confirm Administered Dose 10 unit .ROUTE .STK-MED ONE Stop: 02/07/21 19:25 Oxytocin (Oxytocin 10 Units/1 Ml Sdv) Confirm Administered Dose 10 unit .ROUTE .STK-MED ONE Stop: 02/07/21 20:07 Sodium Chloride (Sodium Chloride 0.9% 10 Ml Syringe) 10 ml FLUSH ASDIRECTED PRN PRN Reason: Keep Vein Open Sodium Chloride (Sodium Chloride 0.9% 10 Ml Syringe) 10 ml FLUSH ASDIRECTED PRN PRN Reason: Keep Vein Open - Infant Interaction Support Person: - Recovery Exam Fundal Tone: Firm Fundal Level: At Umbilicus Fundal Placement: Midline Lochia Amount: Moderate Lochia Color: Rubra/Red Perineum Description: Intact, Minimal Bruising/Swelling, Edematous Episiotomy/Laceration: None Bladder Status: Indwelling Catheter in Place Urinary Elimination: Indwelling Catheter - Exam General: Alert, Oriented HEENT: Pupils Equal Neck: Supple Lungs: Clear to Auscultation, Normal Respiratory Effort Cardiovascular: Regular Rate, Regular Rhythm GI/Abdominal Exam: Normal Bowel Sounds, Soft, Non-Tender Extremities: Normal Inspection, Normal Range of Motion, Non-Tender, No Pedal Edema, Normal Capillary Refill Skin: Warm, Dry, Intact Wound/Incisions: Healing Well, Other (some blood on dressing, removed and excellent under that.) Neurological: No New Focal Deficit Psy/Mental Status: Alert, Normal Affect, Normal Mood - Problem List Review Problem List Initiated/Reviewed/Updated: Yes - My Orders Last 24 Hours: My Active Orders 02/07/21 21:34 Acetaminophen/oxyCODONE [Percocet 325-5 MG] 1 tab PO Q4H PRN Acetaminophen/oxyCODONE [Percocet 325-5 MG] 2 tab PO Q4H PRN Naloxone [Narcan] 0.1 mg IVPUSH SEECOMMENT PRN diphenhydrAMINE [Benadryl] 25 mg IVPUSH Q6H PRN ePHEDrine [ePHEDrine sulfate] 5 mg IVPUSH SEECOMMENT PRN witch Elida [Tucks] 1 pad TOP ASDIRECTED PRN 02/07/21 21:34 Communication Order [RC] PER UNIT ROUTINE Communication Order [RC] PER UNIT ROUTINE Communication Order [RC] PER UNIT ROUTINE Notify Provider Intake and Out [RC] ASDIRECTED Vital Signs [RC] Q4HR Assess Lochia [WOMSER] Per Unit Routine Assess Uterine Involution [WOMSER] Per Unit Routine Medication Administration Instruction [OM.PC] Routine 02/08/21 03:00 Ketorolac [Toradol] 30 mg IVPUSH Q6H 02/08/21 20:57 Urinary Catheter Removal [RC] Per Unit Routine - Assessment Assessment:: POD1 -Anemia - doing well. Minimal lochia. No symptoms with ambulation. Recheck tomorrow. -Post op - pain controlled. No complaints. Possible discharge tomorrow.
[2021-02-08] MEDS: Ibuprofen 600 MG Tab PO PRN (22:00)
[2021-02-09] MEDS: Simethicone 80 MG Tab.Chew PO PRN ×2 (07:59→20:33)
[2021-02-09] MEDS: Acetaminophen/oxyCODONE 325-5 MG Tab PO PRN ×3 (07:59→20:30)
[2021-02-09] MEDS: Ibuprofen 600 MG Tab PO PRN ×2 (09:33→23:49)
[2021-02-10] MEDS: Simethicone 80 MG Tab.Chew PO PRN (06:43)
[2021-02-10] MEDS: Ibuprofen 600 MG Tab PO PRN (06:43)
[2021-02-10] MEDS: Acetaminophen/oxyCODONE 325-5 MG Tab PO PRN (09:51)
[2021-02-10] MEDS ORDERED: Measles, Mumps & Rubella Vaccine 0.5 ML SDV SUBCUT ONE (10:01)
--- NOTE | 2021-02-21 07:48 | PCM.DCSUM1 ---
Discharge Summary - Hospital Course Diagnosis: Stroke: No - Discharge Data Discharge Date: 02/10/21 Discharge Disposition: Home, Self-Care 01 Condition: Good - Referral to Home Health Primary Care Physician: Marycarmen España MD - Patient Summary/Data Operative Procedure(s) Performed: primary section - Patient Instructions Diet: Usual Diet as Tolerated Diet, Other: Increase calcium and calorie intake while Activity: No Lifting Over 10 Pounds, No Strenuous Activities Activity, Other: pelvic rest Driving: Do Not Drive Showering/Bathing: May Shower, No Tub Bathing/Swimming Wound/Incision Care: Keep Operative Site/Wound Site Clean and Dry Notify Provider of: Fever, Increased Pain, Swelling and Redness, Drainage, Nausea and/or Vomiting Other/Special Instructions: Nothing in vagina for [address] Cao in 1-2 weeks - Discharge Plan *PRESCRIPTION DRUG MONITORING PROGRAM REVIEWED*: No *COPY OF PRESCRIPTION DRUG MONITORING REPORT IN PATIENT ALEJANDRA: No Home Medications: Home Meds Famotidine [Pepcid] 10 mg PO DAILY PRN 02/06/21 [History] No122/Iron/Folic Acid [ Multi Tablet] 1 each PO DAILY 02/06/21 [History] Patient Handouts: Baby Blues, and Self-Care, Care After Delivery Referrals: Yenny Cao MD [Physician] - (1-2 weeks) - Discharge Summary/Plan Comment DC Time >30 min.: No - General Info Date of Service: 02/21/21 Functional Status: Reports: Pain Controlled - Review of Systems General: Reports: No Symptoms HEENT: Reports: No Symptoms Pulmonary: Reports: No Symptoms Cardiovascular: Reports: No Symptoms Gastrointestinal: Reports: No Symptoms Genitourinary: Reports: No Symptoms Musculoskeletal: Reports: No Symptoms Skin: Reports: No Symptoms Neurological: Reports: No Symptoms Psychiatric: Reports: No Symptoms - Patient Data Vitals - Most Recent: Last Vital Signs Temp 36.9 C 02/10/21 09:45 Pulse 80 02/10/21 09:45 Resp 16 02/10/21 09:45 BP 119/66 02/10/21 09:45 Pulse Ox 94 L 02/10/21 09:45 Weight - Most Recent: 76.929 kg Med Orders - Current: Current Medications Discontinued Medications Acetaminophen (Acetaminophen 325 Mg Tab) 650 mg PO Q4H PRN PRN Reason: Pain (Mild 1-3) and fever Bupivacaine HCl (Bupivacaine 0.5% 30 Ml Sdv) Confirm Administered Dose 30 ml .ROUTE .STK-MED ONE Stop: 02/07/21 19:23 Last Admin: 02/07/21 19:57 Dose: 20 ml Documented by: Bupivacaine HCl (Bupivacaine 0.25% 10 Ml Sdv) 10 ml .ROUTE .STK-MED ONE Stop: 02/07/21 00:01 Bupivacaine HCl (Bupivacaine 0.25% 10 Ml Sdv) 10 ml .ROUTE .STK-MED ONE Stop: 02/07/21 00:01 Calcium Carbonate/Glycine (Calcium Carbonate 500 Mg Tab.Chew) 1,000 mg PO Q2H PRN PRN Reason: Indigestion Cefazolin Sodium (Cefazolin 1 Gm Vial) Confirm Administered Dose 2 gm .ROUTE .STK-MED ONE Stop: 02/07/21 19:25 Citric Acid/Sodium Citrate (Citric Acid/Sodium Citrate Solution 30 Ml Cup) Confirm Administered Dose 30 ml .ROUTE .STK-MED ONE Stop: 02/07/21 19:13 Last Admin: 02/07/21 19:20 Dose: 30 ml Documented by: Citric Acid/Sodium Citrate (Citric Acid/Sodium Citrate Solution 30 Ml Cup) 30 ml PO ONETIME ONE Stop: 02/07/21 19:30 Last Admin: 02/07/21 23:42 Dose: Not Given Documented by: Diphenhydramine HCl (Diphenhydramine 50 Mg/Ml Sdv) 25 mg IVPUSH Q6H PRN PRN Reason: pruritis Diphenhydramine HCl (Diphenhydramine 50 Mg/Ml Sdv) 25 mg IVPUSH Q6H PRN PRN Reason: Itching or Nausea Ephedrine Sulfate (Ephedrine 50 Mg/Ml Sdv) 5 mg IVPUSH ASDIRECTED PRN PRN Reason: Hypotension Ephedrine Sulfate (Ephedrine 50 Mg/Ml Sdv) 5 mg IVPUSH ASDIRECTED PRN PRN Reason: Hypotension Ephedrine Sulfate (Ephedrine 50 Mg/Ml Sdv) 5 mg IVPUSH SEECOMMENT PRN PRN Reason: Other Fentanyl (Fentanyl 100 Mcg/2 Ml Sdv) 100 mcg EPIDUR Q3H PRN PRN Reason: Pain Last Admin: 02/07/21 14:30 Dose: 100 mcg Documented by: Fentanyl (Fentanyl 100 Mcg/2 Ml Sdv) Confirm Administered Dose 100 mcg .ROUTE .[facility] ONE Stop: 02/07/21 19:25 Fentanyl (Fentanyl 100 Mcg/2 Ml Sdv) 50 mcg IVPUSH Q20M PRN PRN Reason: Pain Fentanyl/Bupivacaine HCl (Bupivacaine/Fentanyl/Ns 100 Ml Bag) 100 ml EPIDUR ASDIRECTED [facility] Last Admin: 02/07/21 12:25 Dose: 100 ml Documented by: Hydromorphone HCl (Hydromorphone 0.5 Mg/0.5 Ml Syringe) 0.5 mg IVPUSH Q10M PRN PRN Reason: Pain (severe 7-10) Lactated Ringer's (Ringers, Lactated) 1,000 mls @ 40 mls/hr IV ASDIRECTED [facility] Last Admin: 02/07/21 18:06 Dose: 40 mls/hr Documented by: Oxytocin/Lactated Ringer's (Pitocin In Lr 10 Units/1,000 Ml) 10 unit in 1,000 mls @ 12 mls/hr IV TITRATE REGGIE; Protocol Last Titration: 02/07/21 19:05 Dose: Infused Documented by: Oxytocin/Lactated Ringer's (Pitocin In Lr 10 Units/1,000 Ml) 10 unit in 1,000 mls @ 500 mls/hr IV .CONTINUOUS REGGIE Oxytocin/Lactated Ringer's (Pitocin In Lr 20 Units/1,000 Ml) 20 unit in 1,000 mls @ 60 mls/hr IV TITRATE REGGIE; Protocol Last Admin: 02/07/21 11:50 Dose: 60 mls/hr Documented by: Lactated Ringer's (Ringers, Lactated) Confirm Administered Dose 2,000 mls @ as directed .ROUTE .[facility] ONE Stop: 02/07/21 19:25 Lactated Ringer's (Ringers, Lactated) 1,000 mls @ 125 mls/hr IV ASDIRECTED [facility] Cefazolin Sodium/Dextrose 2 gm (/ Premix) 50 mls @ 100 mls/hr IV ONETIME ONE Stop: 02/07/21 20:14 Last Admin: 02/07/21 23:42 Dose: Not Given Documented by: Azithromycin 500 mg/ Sodium (Chloride) 250 mls @ 250 mls/hr IV ONETIME ONE Stop: 02/07/21 20:39 Last Admin: 02/07/21 19:22 Dose: 250 mls/hr Documented by: Dextrose/Lactated Ringer's (Dextrose 5%-Lactated Ringers) 1,000 mls @ 125 mls/hr IV ASDIRECTED [facility] Stop: 02/08/21 05:33 Last Admin: 02/08/21 00:19 Dose: 125 mls/hr Documented by: Ibuprofen (Ibuprofen 600 Mg Tab) 600 mg PO Q6H PRN PRN Reason: Pain Last Admin: 02/10/21 06:43 Dose: 600 mg Documented by: Ketorolac Tromethamine (Ketorolac 30 Mg/Ml Sdv) Confirm Administered Dose 30 mg .ROUTE .STK-MED ONE Stop: 02/07/21 19:25 Ketorolac Tromethamine (Ketorolac 30 Mg/Ml Sdv) 30 mg IVPUSH Q6H [facility] Stop: 02/08/21 09:35 Last Admin: 02/08/21 02:40 Dose: Not Given Documented by: Ketorolac Tromethamine (Ketorolac 30 Mg/Ml Sdv) 30 mg IVPUSH Q6H [facility] Stop: 02/08/21 15:01 Last Admin: 02/08/21 15:46 Dose: 30 mg Documented by: Lidocaine HCl (Lidocaine 1% 50 Ml Mdv) 20 ml INJECT ONETIME ONE Stop: 02/06/21 20:25 Last Admin: 02/07/21 23:42 Dose: Not Given Documented by: Lidocaine/Epinephrine (Lidocaine 2% With Epinephrine 1:200,000 20 Ml Sdv) Confirm Administered Dose 20 ml .ROUTE .STK-MED ONE Stop: 02/07/21 19:25 Lidocaine/Epinephrine (Lidocaine 1.5% With Epinephrine 1:200,000 5 Ml Amp) 5 ml .ROUTE .STK-MED ONE Stop: 02/07/21 00:01 Measles/Mumps/Rubella Vaccine Live (Measles, Mumps & Rubella Vaccine 0.5 Ml Sdv) 0.5 ml SUBCUT .ONCE ONE Stop: 02/10/21 10:02 Last Admin: 02/10/21 11:23 Dose: 0.5 ml Documented by: Meperidine HCl (Meperidine 50 Mg/Ml Vial) Confirm Administered Dose 50 mg .ROUTE .STK-MED ONE Stop: 02/07/21 20:08 Metoclopramide HCl (Metoclopramide 10 Mg/2 Ml Sdv) Confirm Administered Dose 10 mg .ROUTE .STK-MED ONE Stop: 02/07/21 19:13 Last Admin: 02/07/21 19:16 Dose: 10 mg Documented by: Metoclopramide HCl (Metoclopramide 10 Mg/2 Ml Sdv) 10 mg IVPUSH ONETIME ONE Stop: 02/07/21 19:41 Last Admin: 02/07/21 23:42 Dose: Not Given Documented by: Miscellaneous Medication (Phenylephrine Hcl In 0.9% Nacl 1 Mg/10 Ml Syringe) 0.1 mg IVPUSH Q10M PRN PRN Reason: Hypotension Miscellaneous Medication (Phenylephrine Hcl In 0.9% Nacl 1 Mg/10 Ml Syringe) Confirm Administered Dose 1 mg .ROUTE .STK-MED ONE Stop: 02/07/21 19:25 Miscellaneous Medication (Phenylephrine Hcl In 0.9% Nacl 1 Mg/10 Ml Syringe) 0.1 mg IVPUSH Q10M PRN PRN Reason: Hypotension Miscellaneous Medication (Phenylephrine Hcl In 0.9% Nacl 1 Mg/10 Ml Syringe) Confirm Administered Dose 1 mg .ROUTE .STK-MED ONE Stop: 02/07/21 20:35 Morphine Sulfate (Morphine Pf 10 Mg/10 Ml Sdv) Confirm Administered Dose 10 mg .ROUTE .STK-MED ONE Stop: 02/07/21 19:25 Nalbuphine HCl (Nalbuphine 10 Mg/1 Ml Vial) 10 mg IVPUSH Q2H PRN PRN Reason: Pain Naloxone HCl (Naloxone 0.4 Mg/Ml Sdv) 0.1 mg IVPUSH SEECOMMENT PRN PRN Reason: Respiratory Depression Ondansetron HCl (Ondansetron 4 Mg/2 Ml Sdv) 4 mg IVPUSH Q4H PRN PRN Reason: Nausea/Vomiting Last Admin: 02/07/21 16:25 Dose: 4 mg Documented by: Ondansetron HCl (Ondansetron 4 Mg/2 Ml Sdv) Confirm Administered Dose 4 mg .ROUTE .STK-MED ONE Stop: 02/07/21 19:25 Ondansetron HCl (Ondansetron 4 Mg/2 Ml Sdv) 4 mg IVPUSH ONETIME PRN PRN Reason: Nausea/Vomiting Oxycodone/Acetaminophen (Acetaminophen/Oxycodone 325-5 Mg Tab) 1 tab PO Q4H PRN PRN Reason: Pain (moderate 4-6) Last Admin: 02/10/21 09:51 Dose: 1 tab Documented by: Oxycodone/Acetaminophen (Acetaminophen/Oxycodone 325-5 Mg Tab) 2 tab PO Q4H PRN PRN Reason: Pain (severe 7-10) Oxytocin (Oxytocin 10 Units/1 Ml Sdv) Confirm Administered Dose 10 unit .ROUTE .STK-MED ONE Stop: 02/07/21 19:25 Oxytocin (Oxytocin 10 Units/1 Ml Sdv) Confirm Administered Dose 10 unit .ROUTE .STK-MED ONE Stop: 02/07/21 20:07 Simethicone (Simethicone 80 Mg Tab.Chew) 80 mg PO Q6H PRN PRN Reason: Gas Last Admin: 02/10/21 06:43 Dose: 80 mg Documented by: Sodium Chloride (Sodium Chloride 0.9% 10 Ml Syringe) 10 ml FLUSH ASDIRECTED PRN PRN Reason: Keep Vein Open Sodium Chloride (Sodium Chloride 0.9% 10 Ml Syringe) 10 ml FLUSH ASDIRECTED PRN PRN Reason: Keep Vein Open Witch Trena (Witch Trena Medicated Pads 40/Jar) 1 pad TOP ASDIRECTED PRN PRN Reason: Abdominal Pain - Exam General: Reports: Alert, Oriented HEENT: Reports: Pupils Equal, Pupils Reactive, EOMI, Mucous Membr. Moist/[place] Neck: Reports: Supple Lungs: Reports: Clear to Auscultation, Normal Respiratory Effort Cardiovascular: Reports: Regular Rate, Regular Rhythm GI/Abdominal Exam: Normal Bowel Sounds, Soft, Non-Tender, No Organomegaly, No Distention, No Abnormal Bruit, No Mass, Pelvis Stable (Female) Exam: Normal External Exam, Normal Speculum Exam, Normal Bimanual Exam Rectal (Female) Exam: Normal Exam, Normal Rectal Tone Back Exam: Reports: Normal Inspection, Full Range of Motion Extremities: Normal Inspection, Normal Range of Motion, Non-Tender, No Pedal Edema, Normal Capillary Refill Skin: Reports: Warm, Dry, Intact Wound/Incisions: Reports: Healing Well Neurological: Reports: No New Focal Deficit Psy/Mental Status: Reports: Alert, Normal Affect, Normal Mood
== END 2021-02-10 12:06 | disposition home or self-care (01) | DRG 540 ==
LOC: JD.OB 18:53 → OBSVTOIN 02-07 19:17 → JD.OB 02-07 20:56
PROVIDERS: ADMIT Obstetrics & Gynecology; ATTEND Obstetrics & Gynecology
PROC: 10D00Z1 Extraction of Products of Conception, Low, Open Approach (ICD-10-PCS; principal; 2021-02-07)
PROC: 4A1HXCZ Monitoring of Products of Conception, Cardiac Rate, External Approach (ICD-10-PCS; 2021-02-07)
PROC: 10H07YZ Insertion of Other Device into Products of Conception, Via Natural or Artificial Opening (ICD-10-PCS; 2021-02-07)
PROC: 3E0234Z Introduction of Serum, Toxoid and Vaccine into Muscle, Percutaneous Approach (ICD-10-PCS; 2021-02-10)
DX: O48.0 Post-term pregnancy (principal); Z3A.40 40 weeks gestation of pregnancy; Z37.0 Single live birth; O99.02 Anemia complicating childbirth; D64.9 Anemia, unspecified; O66.2 Obstructed labor due to unusually large fetus; O77.0 Labor and delivery complicated by meconium in amniotic fluid; Z20.822 Contact with and (suspected) exposure to COVID-19; Z23 Encounter for immunization
CPT/HCPCS: 01961; 01967; 36415; 51702; 59025; 85025; 85027; 86592; 86803; 90471; 90707; 94762; A9270-GY; J0456; J0690; J1885; J2175; J2270; J2370; J2405; J2590; J2765; J3010; J3490; J7050; J7120; J7121; U0002

== ENCOUNTER 2024-03-31 05:22 | Inpatient (IN) | payer BC, OTHER ==
[2024-03-31] MEDS ORDERED: Sodium Chloride 0.9% 10 ML Syringe FLUSH PRN (09:20)
[2024-03-31] MEDS ORDERED: Lidocaine 1% 50 ML MDV INJECT PRN (09:20)
[2024-03-31] MEDS ORDERED: Nalbuphine 10 MG/1 ML Vial IVPUSH PRN (09:20)
[2024-03-31] MEDS ORDERED: Oxytocin/0.9 % Sodium Chloride 30 UNIT/500 ML BAG IV SCH (09:30)
[2024-03-31 10:07] LABS: BASOPHILS ABSOLUTE AUTO 0.1 K/mm3 (0.0-0.2); BASOPHILS PERCENT AUTO 0.5 % (0.0-1.0); EOSINOPHILS ABSOLUTE AUTO 0.1 K/mm3 (0.0-0.4); EOSINOPHILS PERCENT AUTO 1.2 % (0.0-6.0); HEMATOCRIT 38.7 % (37.0-47.0); HEMOGLOBIN 12.9 gm/dl (12.0-16.0); IMMATURE GRAN ABSOLUTE AUTO 0.05 K/mm3 (0.00-0.05); IMMATURE GRAN PERCENT AUTO 0.4 % (0.0-0.4); LYMPHOCYTES ABSOLUTE AUTO 2.6 K/mm3 (1.0-4.8); LYMPHOCYTES PERCENT AUTO 22.8 % (24.0-44.0); MEAN CORPUSCULAR HEMOGLOBIN 29.3 pg (28.0-32.0); MEAN CORPUSCULAR HGB CONC 33.3 g/dl (32.0-36.0); MEAN PLATELET VOLUME 10.5 fl (9.4-12.3); MONOCYTES ABSOLUTE AUTO 0.9 K/mm3 (0.0-0.8); NEUTROPHILS ABSOLUTE AUTO 7.6 K/mm3 (1.8-7.7); NEUTROPHILS PERCENT AUTO 67.1 % (41.0-71.0); PLATELET COUNT,PLT 173 K/mm3 (150-400); WHITE BLOOD CELL COUNT,WBC 11.36 K/mm3 (3.9-11.3)
[2024-03-31] MEDS: Lactated Ringers 1,000 ML IV SCH (11:03)
[2024-03-31] MEDS: Oxytocin/0.9 % Sodium Chloride 30 UNIT/500 ML BAG IV SCH (11:04)
[2024-03-31] MEDS ORDERED: fentaNYL 100 MCG/2 ML SDV EPIDUR PRN (11:28)
[2024-03-31] MEDS ORDERED: diphenhydrAMINE 50 MG/ML SDV IVPUSH PRN (11:28)
[2024-03-31] MEDS ORDERED: Bupivacaine/fentaNYL/NS 100 ML Bag EPIDUR PRN (11:28)
[2024-03-31] MEDS ORDERED: ePHEDrine 50 MG/ML SDV IVPUSH PRN (11:28)
[2024-04-01] MEDS ORDERED: Bupivacaine 0.25% 10 ML SDV ONE
[2024-04-01] MEDS: Witch Hazel Medicated Pads 40/Jar TOP PRN (07:26)
[2024-04-01] MEDS: Benzocaine/Menthol 20%-0.5% Spray 78 GM Cannister TOP PRN (07:26)
[2024-04-01] MEDS: Acetaminophen 325 MG Tab PO SCH (07:26)
[2024-04-01] MEDS: Ibuprofen 600 MG Tab PO PRN (14:11)
== END 2024-04-02 15:00 | disposition home or self-care (01) | DRG 807 ==
LOC: JD.OB 05:22 → OBSVTOIN 04-01 05:22 → JD.OB 04-01 05:23
PROVIDERS: ADMIT Obstetrics & Gynecology; ATTEND Obstetrics & Gynecology
PROC: 10E0XZZ Delivery of Products of Conception, External Approach (ICD-10-PCS; principal; 2024-04-01)
PROC: 0KQM0ZZ Repair Perineum Muscle, Open Approach (ICD-10-PCS; 2024-04-01)
PROC: 10907ZC Drainage of Amniotic Fluid, Therapeutic from Products of Conception, Via Natural or Artificial Opening (ICD-10-PCS; 2024-04-01)
PROC: 3E033VJ Introduction of Other Hormone into Peripheral Vein, Percutaneous Approach (ICD-10-PCS; 2024-04-01)
PROC: 3E0R3BZ Introduction of Anesthetic Agent into Spinal Canal, Percutaneous Approach (ICD-10-PCS; 2024-04-01)
PROC: 00HU33Z Insertion of Infusion Device into Spinal Canal, Percutaneous Approach (ICD-10-PCS; 2024-04-01)
DX: O34.219 Maternal care for unspecified type scar from previous cesarean delivery (principal); Z37.0 Single live birth; O48.0 Post-term pregnancy; O99.344 Other mental disorders complicating childbirth; F41.9 Anxiety disorder, unspecified; F32.A Depression, unspecified; O70.1 Second degree perineal laceration during delivery; Z3A.40 40 weeks gestation of pregnancy; Z98.890 Other specified postprocedural states
CPT/HCPCS: 36415; 51701; 51702; 59025; 59200; 59409; 85025; 86592; 86850; 86900; 86901; A9270-GY; C1758; J0665; J7120